=== PATIENT | male | born 1950 | race Caucasian/White ===

== ENCOUNTER 2018-01-03 16:53 | Inpatient (IN) | payer MEDICARE, OTHER ==
[2018-01-03] MEDS: FUROSEMIDE 40 MG INJ IV (17:32)
[2018-01-03] MEDS: NITROGLYCERIN (SL) 0.4 MG TAB SL (17:34)
[2018-01-03] MEDS: NITROGLYCERIN 2% 1 GM OINT PKT TD (17:34)
[2018-01-03] MEDS: ASPIRIN 81 MG TAB PO (17:34)
[2018-01-03 18:05] LABS: ADD MAN DIFF? NO
[2018-01-03 18:10] LABS: WHITE BLOOD COUNT 15.4 10^3/ul (4.8-10.8)
[2018-01-03 18:10] LABS: BASOPHIL # 0.1 10^3/ul (0.0-0.1); BASOPHILS % 0.7 % (0.0-2.0); EOSINOPHILS # 0.7 10^3/ul (0.0-0.5); EOSINOPHILS % 4.6 % (0.0-7.0); HEMATOCRIT 44.9 % (42.0-52.0); HEMOGLOBIN 14.1 g/dl (14.0-18.0); LYMPHOCYTES % 6.8 % (15.0-51.0); MEAN CORPUSCULAR HEMOGLOBIN 23.4 pg (29.0-33.0); MEAN CORPUSCULAR HGB CONC 31.4 g/dl (32.0-37.0); MEAN CORPUSCULAR VOLUME 74.5 fl (82.0-101.0); MEAN PLATELET VOLUME 10.2 fl (7.4-10.4); MONOCYTE # 0.6 10^3/ul (0.3-0.9); MONOCYTES % 3.7 % (0.0-11.0); NEUTROPHIL # 12.8 10^3/ul (1.6-7.5); RED BLOOD COUNT 6.03 10^6/ul (4.70-6.10); RED CELL DISTRIBUTION WIDTH 20.4 % (11.5-14.5)
[2018-01-03 18:38] LABS: ANION GAP 20 (8-16); BLOOD UREA NITROGEN 12 mg/dl (7-20); CALCIUM 8.3 mg/dl (8.4-10.2); CARBON DIOXIDE 19 mmol/L (21-31); CHLORIDE 112 mmol/L (97-110); CREATININE 0.72 mg/dl (0.61-1.24); GLUCOSE 89 mg/dl (70-220); POTASSIUM 3.4 mmol/L (3.5-5.1); SODIUM 148 mmol/L (135-144)
[2018-01-03 18:40] LABS: TROPONIN-I 0.013 ng/ml (0.000-0.120)
[2018-01-03 18:42] LABS: PLATELET COUNT 810 10^3/UL (140-415)
[2018-01-03] MEDS ORDERED: ACETAMINOPHEN 325 MG TAB PO (19:30)
[2018-01-03] MEDS: POTASSIUM CHLORIDE (SR) 20 MEQ TAB PO (19:30)
[2018-01-03] MEDS: ONDANSETRON 4 MG INJ IV (19:58)
[2018-01-03 23:50] LABS: CREATINE KINASE 21 IU/L (23-200)
[2018-01-04] MEDS ORDERED: ONDANSETRON 4 MG INJ IV
[2018-01-04] MEDS ORDERED: morphine 2 MG INJ IV
[2018-01-04] MEDS ORDERED: NACL 0.9% 3 ML SYG IV
[2018-01-04 00:02] LABS: CK INDEX 1.7
[2018-01-04 00:04] LABS: CK-MB 0.36 ng/ml (0.0-2.4); TROPONIN-I < 0.010 ng/ml (0.000-0.120)
[2018-01-04] MEDS: LORAZEPAM 0.5 MG TAB PO (01:01)
[2018-01-04] MEDS: FUROSEMIDE 20 MG TAB PO ×2 (06:14→19:50)
[2018-01-04] MEDS: NITROGLYCERIN (SL) 0.4 MG TAB SL (06:14)
[2018-01-04] MEDS: PANTOPRAZOLE (EC) 40 MG TAB PO (06:14)
[2018-01-04] MEDS: HYDROXYUREA 500 MG CAP PO (09:00)
[2018-01-04] MEDS: HEPARIN 5,000 UNIT/0.5 ML VIAL SC (09:00)
[2018-01-04 09:10] LABS: ADD MAN DIFF? NO
[2018-01-04 09:14] LABS: BASOPHIL # 0.1 10^3/ul (0.0-0.1); BASOPHILS % 0.9 % (0.0-2.0); EOSINOPHILS # 0.6 10^3/ul (0.0-0.5); EOSINOPHILS % 4.7 % (0.0-7.0); HEMATOCRIT 48.3 % (42.0-52.0); LYMPHOCYTES # 1.1 10^3/ul (0.8-2.9); LYMPHOCYTES % 8.3 % (15.0-51.0); MEAN CORPUSCULAR HEMOGLOBIN 23.4 pg (29.0-33.0); MEAN CORPUSCULAR HGB CONC 31.1 g/dl (32.0-37.0); MEAN CORPUSCULAR VOLUME 75.5 fl (82.0-101.0); MEAN PLATELET VOLUME 10.6 fl (7.4-10.4); MONOCYTE # 0.5 10^3/ul (0.3-0.9); MONOCYTES % 3.9 % (0.0-11.0); NEUTROPHIL # 10.2 10^3/ul (1.6-7.5); NEUTROPHILS % 80.6 % (39.0-77.0); PLATELET COUNT 778 10^3/UL (140-415); RED CELL DISTRIBUTION WIDTH 20.6 % (11.5-14.5)
[2018-01-04 09:14] LABS: WHITE BLOOD COUNT 12.7 10^3/ul (4.8-10.8)
[2018-01-04] MEDS: ASPIRIN (EC) 81 MG TAB PO (09:14)
[2018-01-04] MEDS: INDOMETHACIN 50 MG PO ×2 (09:14→13:29)
[2018-01-04 09:30] LABS: CREATINE KINASE < 20 IU/L (23-200)
[2018-01-04 09:36] LABS: ALANINE AMINOTRANSFERASE 11 IU/L (13-69); ALBUMIN 3.8 g/dl (3.3-4.9); ALBUMIN/GLOBULIN RATIO 1.46; ALKALINE PHOSPHATASE 67 IU/L (42-121); ANION GAP 15 (8-16); ASPARTATE AMINO TRANSFERASE 14 IU/L (15-46); BILIRUBIN,INDIRECT 0.6 mg/dl (0-1.1); BILIRUBIN,TOTAL 0.6 mg/dl (0.2-1.3); BLOOD UREA NITROGEN 12 mg/dl (7-20); CALCIUM 8.7 mg/dl (8.4-10.2); CARBON DIOXIDE 22 mmol/L (21-31); CHLORIDE 111 mmol/L (97-110); CHOL/HDL RATIO 3.5 RATIO; CHOLESTEROL 53 mg/dl (100-200); CREATININE 0.82 mg/dl (0.61-1.24); GLUCOSE 135 mg/dl (70-220); HDL CHOLESTEROL 15 mg/dl (31-75); LDL CHOLESTEROL,CALCULATED 21 mg/dl; MAGNESIUM 1.3 mg/dl (1.7-2.5); POTASSIUM 4.1 mmol/L (3.5-5.1); SODIUM 144 mmol/L (135-144); TOTAL PROTEIN 6.4 g/dl (6.1-8.1); TRIGLYCERIDES 86 mg/dl (0-149)
[2018-01-04 10:02] LABS: CK-MB 0.28 ng/ml (0.0-2.4); TROPONIN-I < 0.010 ng/ml (0.000-0.120)
[2018-01-04 10:11] LABS: HEMOGLOBIN A1C 5.2 % (0-5.9)
[2018-01-04 10:14] LABS: B-TYPE NATRIURETIC PEPTIDE 6900 PG/ML (0-125)
[2018-01-04] MEDS: ACETAMINOPHEN 325 MG TAB PO (13:29)
[2018-01-04] MEDS ORDERED: INDOMETHACIN 25 MG PO (15:00)
[2018-01-04] MEDS: GUAIFENESIN/CODEINE 5ML CUP PO ×2 (15:52→20:28)
[2018-01-04] MEDS: LISINOPRIL 10 MG TAB PO (19:50)
[2018-01-05] MEDS: morphine LIQ (10 MG/5 ML) CUP PO ×2 (04:08→11:42)
[2018-01-05] MEDS: FUROSEMIDE 20 MG TAB PO ×2 (06:13→18:34)
[2018-01-05] MEDS: PANTOPRAZOLE (EC) 40 MG TAB PO (06:13)
[2018-01-05] MEDS: HYDROXYUREA 500 MG CAP PO (08:48)
[2018-01-05] MEDS: ASPIRIN (EC) 81 MG TAB PO (08:49)
[2018-01-05] MEDS: LISINOPRIL 10 MG TAB PO (08:49)
[2018-01-05] MEDS: ALBUTEROL/IPRATROPIUM (NEB) 3 ML AMP HHN (09:04)
[2018-01-05] MEDS: MAGNESIUM SULFATE 2 GM/50 ML 50 ML IVPB ×3 (10:38→21:13)
[2018-01-05] MEDS: REGADENOSON 0.4 MG/5 ML SYG (14:20)
[2018-01-06] MEDS: FUROSEMIDE 20 MG TAB PO ×2 (05:43→18:04)
[2018-01-06] MEDS: PANTOPRAZOLE (EC) 40 MG TAB PO (08:21)
[2018-01-06] MEDS: LISINOPRIL 10 MG TAB PO (08:22)
[2018-01-06] MEDS: ASPIRIN (EC) 81 MG TAB PO (08:22)
[2018-01-06] MEDS: HYDROXYUREA 500 MG CAP PO (08:24)
[2018-01-06 08:53] LABS: ADD MAN DIFF? NO
[2018-01-06 08:57] LABS: WHITE BLOOD COUNT 14.6 10^3/ul (4.8-10.8)
[2018-01-06 08:57] LABS: BASOPHIL # 0.1 10^3/ul (0.0-0.1); BASOPHILS % 0.6 % (0.0-2.0); EOSINOPHILS # 0.5 10^3/ul (0.0-0.5); EOSINOPHILS % 3.4 % (0.0-7.0); HEMOGLOBIN 15.2 g/dl (14.0-18.0); LYMPHOCYTES # 1.1 10^3/ul (0.8-2.9); LYMPHOCYTES % 7.6 % (15.0-51.0); MEAN CORPUSCULAR HEMOGLOBIN 23.2 pg (29.0-33.0); MEAN CORPUSCULAR VOLUME 74.7 fl (82.0-101.0); MEAN PLATELET VOLUME 10.4 fl (7.4-10.4); MONOCYTE # 0.7 10^3/ul (0.3-0.9); MONOCYTES % 4.5 % (0.0-11.0); NEUTROPHIL # 12.1 10^3/ul (1.6-7.5); NEUTROPHILS % 82.7 % (39.0-77.0); PLATELET COUNT 750 10^3/UL (140-415); RED BLOOD COUNT 6.56 10^6/ul (4.70-6.10); RED CELL DISTRIBUTION WIDTH 20.8 % (11.5-14.5)
[2018-01-06 09:23] LABS: ALANINE AMINOTRANSFERASE 18 IU/L (13-69); ALBUMIN 3.7 g/dl (3.3-4.9); ALBUMIN/GLOBULIN RATIO 1.32; ALKALINE PHOSPHATASE 75 IU/L (42-121); ANION GAP 12 (8-16); ASPARTATE AMINO TRANSFERASE 27 IU/L (15-46); BILIRUBIN,INDIRECT 0.9 mg/dl (0-1.1); BILIRUBIN,TOTAL 0.9 mg/dl (0.2-1.3); BLOOD UREA NITROGEN 8 mg/dl (7-20); CARBON DIOXIDE 28 mmol/L (21-31); CHLORIDE 104 mmol/L (97-110); CREATININE 0.74 mg/dl (0.61-1.24); GLUCOSE 91 mg/dl (70-220); MAGNESIUM 1.7 mg/dl (1.7-2.5); POTASSIUM 3.1 mmol/L (3.5-5.1); SODIUM 141 mmol/L (135-144); TOTAL PROTEIN 6.5 g/dl (6.1-8.1)
[2018-01-06] MEDS: POTASSIUM CHLORIDE (SR) 20 MEQ TAB PO (18:04)
[2018-01-06] MEDS: ATORVASTATIN 20 MG TAB PO (20:20)
[2018-01-07] MEDS: PANTOPRAZOLE (EC) 40 MG TAB PO (06:34)
[2018-01-07] MEDS: FUROSEMIDE 20 MG TAB PO ×2 (06:34→17:24)
[2018-01-07 08:54] LABS: ADD MAN DIFF? NO
[2018-01-07] MEDS: ASPIRIN (EC) 81 MG TAB PO (08:55)
[2018-01-07] MEDS: MULTIVITAMINS THERAPEUTIC TAB PO (08:55)
[2018-01-07] MEDS: HYDROXYUREA 500 MG CAP PO (08:55)
[2018-01-07 08:59] LABS: BASOPHIL # 0.1 10^3/ul (0.0-0.1); BASOPHILS % 0.8 % (0.0-2.0); EOSINOPHILS # 0.7 10^3/ul (0.0-0.5); EOSINOPHILS % 5.3 % (0.0-7.0); HEMATOCRIT 49.2 % (42.0-52.0); HEMOGLOBIN 15.4 g/dl (14.0-18.0); LYMPHOCYTES # 1.5 10^3/ul (0.8-2.9); LYMPHOCYTES % 11.3 % (15.0-51.0); MEAN CORPUSCULAR HEMOGLOBIN 23.2 pg (29.0-33.0); MEAN CORPUSCULAR HGB CONC 31.3 g/dl (32.0-37.0); MEAN PLATELET VOLUME 10.6 fl (7.4-10.4); MONOCYTE # 0.5 10^3/ul (0.3-0.9); MONOCYTES % 3.7 % (0.0-11.0); NEUTROPHIL # 10.4 10^3/ul (1.6-7.5); NEUTROPHILS % 77.8 % (39.0-77.0); PLATELET COUNT 750 10^3/UL (140-415); RED BLOOD COUNT 6.65 10^6/ul (4.70-6.10); RED CELL DISTRIBUTION WIDTH 20.6 % (11.5-14.5)
[2018-01-07 08:59] LABS: WHITE BLOOD COUNT 13.4 10^3/ul (4.8-10.8)
[2018-01-07 09:17] LABS: ANION GAP 19 (8-16); BLOOD UREA NITROGEN 11 mg/dl (7-20); CALCIUM 8.1 mg/dl (8.4-10.2); CARBON DIOXIDE 24 mmol/L (21-31); CHLORIDE 102 mmol/L (97-110); CREATININE 0.68 mg/dl (0.61-1.24); GLUCOSE 82 mg/dl (70-220); POTASSIUM 4.8 mmol/L (3.5-5.1); SODIUM 140 mmol/L (135-144)
[2018-01-07 09:18] LABS: MAGNESIUM 1.5 mg/dl (1.7-2.5)
[2018-01-07 10:48] LABS: URIC ACID 12.5 mg/dl (3.1-7.9)
[2018-01-07] MEDS: MAG SULFATE 2GM IN 50 ML IVPB (15:28)
[2018-01-07] MEDS ORDERED: MAGNESIUM SULFATE 3 GM in DEXTROSE 5% 100 ML IVPB (16:00)
[2018-01-07] MEDS: MAGNESIUM SULFATE 1 GM/D5W 100 ML IVPB (17:20)
[2018-01-07] MEDS: SACUBITRIL/VALSARTAN (24mg-26mg) TABLET PO (22:03)
[2018-01-07] MEDS: ATORVASTATIN 20 MG TAB PO (22:04)
[2018-01-08] MEDS: LORAZEPAM 2 MG INJ IV ×2 (05:07→11:43)
[2018-01-08] MEDS: HYDROXYUREA 500 MG CAP PO (09:00)
[2018-01-08] MEDS: ASPIRIN (EC) 81 MG TAB PO (10:16)
[2018-01-08] MEDS: MULTIVITAMINS THERAPEUTIC TAB PO (10:18)
[2018-01-08] MEDS: FUROSEMIDE 20 MG TAB PO ×2 (10:18→17:50)
[2018-01-08] MEDS: PANTOPRAZOLE (EC) 40 MG TAB PO (10:18)
[2018-01-08] MEDS: SACUBITRIL/VALSARTAN (24mg-26mg) TABLET PO ×2 (13:14→20:54)
[2018-01-08 15:22] LABS: ADD MAN DIFF? NO
[2018-01-08 15:23] LABS: WHITE BLOOD COUNT 16.9 10^3/ul (4.8-10.8)
[2018-01-08 15:23] LABS: BASOPHIL # 0.1 10^3/ul (0.0-0.1); BASOPHILS % 0.8 % (0.0-2.0); EOSINOPHILS # 0.8 10^3/ul (0.0-0.5); EOSINOPHILS % 4.9 % (0.0-7.0); HEMATOCRIT 53.6 % (42.0-52.0); HEMOGLOBIN 16.8 g/dl (14.0-18.0); LYMPHOCYTES # 1.5 10^3/ul (0.8-2.9); LYMPHOCYTES % 9.1 % (15.0-51.0); MEAN CORPUSCULAR HEMOGLOBIN 23.3 pg (29.0-33.0); MEAN CORPUSCULAR HGB CONC 31.3 g/dl (32.0-37.0); MEAN CORPUSCULAR VOLUME 74.3 fl (82.0-101.0); MEAN PLATELET VOLUME 10.2 fl (7.4-10.4); MONOCYTE # 0.5 10^3/ul (0.3-0.9); MONOCYTES % 3.1 % (0.0-11.0); NEUTROPHIL # 13.7 10^3/ul (1.6-7.5); NEUTROPHILS % 81.1 % (39.0-77.0); PLATELET COUNT 857 10^3/UL (140-415); RED BLOOD COUNT 7.21 10^6/ul (4.70-6.10); RED CELL DISTRIBUTION WIDTH 20.9 % (11.5-14.5)
[2018-01-08 15:52] LABS: ANION GAP 16 (8-16); BLOOD UREA NITROGEN 14 mg/dl (7-20); CALCIUM 8.3 mg/dl (8.4-10.2); CARBON DIOXIDE 25 mmol/L (21-31); CHLORIDE 104 mmol/L (97-110); CREATININE 0.75 mg/dl (0.61-1.24); GLUCOSE 107 mg/dl (70-220); POTASSIUM 3.4 mmol/L (3.5-5.1); SODIUM 142 mmol/L (135-144)
[2018-01-08 16:00] LABS: MAGNESIUM 1.7 mg/dl (1.7-2.5)
[2018-01-08] MEDS: POTASSIUM CHLORIDE (SR) 20 MEQ TAB PO (16:58)
[2018-01-08] MEDS ORDERED: GUAIFENESIN 20 MG/ML 5ML CUP PO (17:00)
[2018-01-08] MEDS ORDERED: MAGNESIUM SULFATE 3 GM in DEXTROSE 5% 100 ML IVPB (17:30)
[2018-01-08] MEDS: COLCHICINE 0.6 MG TAB PO (17:51)
[2018-01-08] MEDS: MAGNESIUM SULFATE 1 GM/D5W 100 ML IVPB ×3 (19:48→21:06)
[2018-01-08] MEDS: ATORVASTATIN 20 MG TAB PO (20:53)
[2018-01-09] MEDS: LORAZEPAM 0.5 MG TAB PO (03:50)
[2018-01-09] MEDS: FUROSEMIDE 20 MG TAB PO ×2 (05:56→17:45)
[2018-01-09] MEDS: ASPIRIN (EC) 81 MG TAB PO (08:46)
[2018-01-09] MEDS: MULTIVITAMINS THERAPEUTIC TAB PO (08:46)
[2018-01-09] MEDS: PANTOPRAZOLE (EC) 40 MG TAB PO (08:46)
[2018-01-09] MEDS: SACUBITRIL/VALSARTAN (24mg-26mg) TABLET PO ×2 (12:12→20:27)
[2018-01-09] MEDS ORDERED: LORAZEPAM 0.5 MG TAB PO (13:30)
[2018-01-09 14:26] LABS: ADD MAN DIFF? NO
[2018-01-09 14:28] LABS: BASOPHIL # 0.2 10^3/ul (0.0-0.1); BASOPHILS % 0.9 % (0.0-2.0); HEMATOCRIT 54.7 % (42.0-52.0); HEMOGLOBIN 16.8 g/dl (14.0-18.0); LYMPHOCYTES % 10.3 % (15.0-51.0); MEAN CORPUSCULAR HEMOGLOBIN 23.1 pg (29.0-33.0); MEAN CORPUSCULAR HGB CONC 30.7 g/dl (32.0-37.0); MEAN CORPUSCULAR VOLUME 75.2 fl (82.0-101.0); MEAN PLATELET VOLUME 9.8 fl (7.4-10.4); MONOCYTE # 0.6 10^3/ul (0.3-0.9); MONOCYTES % 3.2 % (0.0-11.0); NEUTROPHILS % 79.4 % (39.0-77.0); RED BLOOD COUNT 7.27 10^6/ul (4.70-6.10); RED CELL DISTRIBUTION WIDTH 20.8 % (11.5-14.5)
[2018-01-09 14:28] LABS: WHITE BLOOD COUNT 18.9 10^3/ul (4.8-10.8)
[2018-01-09 14:31] LABS: PLATELET COUNT 897 10^3/UL (140-415)
[2018-01-09 14:46] LABS: MAGNESIUM 1.8 mg/dl (1.7-2.5); URIC ACID 10.9 mg/dl (3.1-7.9)
[2018-01-09 14:46] LABS: PHOSPHORUS 4.6 mg/dl (2.5-4.9)
[2018-01-09 14:47] LABS: ANION GAP 16 (8-16); BLOOD UREA NITROGEN 14 mg/dl (7-20); CALCIUM 8.4 mg/dl (8.4-10.2); CARBON DIOXIDE 25 mmol/L (21-31); CHLORIDE 105 mmol/L (97-110); CREATININE 0.78 mg/dl (0.61-1.24); GLUCOSE 102 mg/dl (70-220); POTASSIUM 3.3 mmol/L (3.5-5.1); SODIUM 143 mmol/L (135-144)
[2018-01-09] MEDS ORDERED: MAGNESIUM SULFATE 3 GM in DEXTROSE 5% 100 ML IVPB (15:30)
[2018-01-09] MEDS: MAG SULFATE 2GM IN 50 ML IVPB (16:06)
[2018-01-09] MEDS: POTASSIUM CHLORIDE (SR) 20 MEQ TAB PO (16:06)
[2018-01-09] MEDS: MAGNESIUM SULFATE 1 GM/D5W 100 ML IVPB (18:40)
[2018-01-09] MEDS: ATORVASTATIN 20 MG TAB PO (20:26)
[2018-01-09] MEDS: GUAIFENESIN/CODEINE 5ML CUP PO (20:31)
[2018-01-09] MEDS ORDERED: POTASSIUM CHLORIDE (SR) 20 MEQ TAB PO (21:00)
[2018-01-10] MEDS: FUROSEMIDE 20 MG TAB PO (06:00)
[2018-01-10] MEDS: PANTOPRAZOLE (EC) 40 MG TAB PO (07:43)
[2018-01-10] MEDS: SACUBITRIL/VALSARTAN (24mg-26mg) TABLET PO (09:12)
[2018-01-10] MEDS: ASPIRIN (EC) 81 MG TAB PO (09:13)
[2018-01-10] MEDS: MULTIVITAMINS THERAPEUTIC TAB PO (09:13)
[2018-01-10 09:44] LABS: ADD MAN DIFF? NO
[2018-01-10 09:46] LABS: WHITE BLOOD COUNT 20.1 10^3/ul (4.8-10.8)
[2018-01-10 09:46] LABS: BASOPHIL # 0.2 10^3/ul (0.0-0.1); EOSINOPHILS # 1.1 10^3/ul (0.0-0.5); EOSINOPHILS % 5.5 % (0.0-7.0); HEMATOCRIT 55.1 % (42.0-52.0); HEMOGLOBIN 17.1 g/dl (14.0-18.0); LYMPHOCYTES # 1.9 10^3/ul (0.8-2.9); LYMPHOCYTES % 9.2 % (15.0-51.0); MEAN CORPUSCULAR HEMOGLOBIN 23.2 pg (29.0-33.0); MEAN CORPUSCULAR VOLUME 74.7 fl (82.0-101.0); MEAN PLATELET VOLUME 9.8 fl (7.4-10.4); MONOCYTE # 0.6 10^3/ul (0.3-0.9); MONOCYTES % 2.9 % (0.0-11.0); NEUTROPHIL # 16.1 10^3/ul (1.6-7.5); RED BLOOD COUNT 7.38 10^6/ul (4.70-6.10); RED CELL DISTRIBUTION WIDTH 21.2 % (11.5-14.5)
[2018-01-10 09:52] LABS: PLATELET COUNT 937 10^3/UL (140-415)
[2018-01-10 10:07] LABS: ANION GAP 14 (8-16); BLOOD UREA NITROGEN 16 mg/dl (7-20); CALCIUM 8.6 mg/dl (8.4-10.2); CARBON DIOXIDE 23 mmol/L (21-31); CHLORIDE 110 mmol/L (97-110); GLUCOSE 93 mg/dl (70-220); POTASSIUM 3.6 mmol/L (3.5-5.1); SODIUM 143 mmol/L (135-144)
[2018-01-10 10:09] LABS: MAGNESIUM 2.2 mg/dl (1.7-2.5)
== END 2018-01-10 16:36 | disposition home or self-care (01) | DRG 293 ==
LOC: MS4 01-05 15:10 → E/R 16:53 → MS3 19:13
PROC: 4A02XM4 Measurement of Cardiac Total Activity, External Approach (ICD-10-PCS; principal; 2018-01-05)
PROC: 3E033HZ Introduction of Radioactive Substance into Peripheral Vein, Percutaneous Approach (ICD-10-PCS; 2018-01-05)
PROC: C22G1ZZ Tomographic (Tomo) Nuclear Medicine Imaging of Myocardium using Technetium 99m (Tc-99m) (ICD-10-PCS; 2018-01-05)
DX: I11.0 Hypertensive heart disease with heart failure (principal); I50.23 Acute on chronic systolic (congestive) heart failure; M10.9 Gout, unspecified; E78.5 Hyperlipidemia, unspecified; E83.42 Hypomagnesemia; I42.9 Cardiomyopathy, unspecified; D47.3 Essential (hemorrhagic) thrombocythemia; F41.9 Anxiety disorder, unspecified; D75.1 Secondary polycythemia; F10.20 Alcohol dependence, uncomplicated
CPT/HCPCS: 71045; 78452; 80048; 80053; 80061; 82550; 82553; 83036; 83735; 83880; 84100; 84443; 84484; 84560; 85025; 93005; 93017; 93306; 94664; 96374; 96375; 99217; 99285-25; G0378

== ENCOUNTER 2018-02-15 11:30 | Inpatient (IN) | payer MEDICARE, OTHER ==
[~2018-02-15 11:30] MED LIST: EPHEDrine SULFATE 50 MG/5 ML SYG; ETOMIDATE 20 MG INJ; PROPOFOL 1000 MG INJ; SUCCINYLCHOLINE CHLORIDE 100 MG/5 ML SYG IV
[2018-02-15 12:33] LABS: ABNORMAL IP MESSAGE 1; HEMATOCRIT 50.4 % (42.0-52.0); HEMOGLOBIN 15.9 g/dl (14.0-18.0); MEAN CORPUSCULAR HEMOGLOBIN 22.8 pg (29.0-33.0); MEAN CORPUSCULAR HGB CONC 31.5 g/dl (32.0-37.0); MEAN CORPUSCULAR VOLUME 72.4 fl (82.0-101.0); MEAN PLATELET VOLUME 9.5 fl (7.4-10.4); PLATELET COUNT 1420 10^3/UL (140-415); POSITIVE DIFF @See below; RED BLOOD COUNT 6.96 10^6/ul (4.70-6.10); RED CELL DISTRIBUTION WIDTH 22.6 % (11.5-14.5)
[2018-02-15] MEDS: PROPOFOL 100 ML IV ×2 (12:34→21:24)
[2018-02-15] MEDS: SOD CHLORIDE 0.9% 1,000 ML IV (12:35)
[2018-02-15] MEDS: CEFTRIAXONE 1 GM/50 ML (PMX) 50 ML IVPB (12:35)
[2018-02-15] MEDS: LORAZEPAM 2 MG INJ IV (12:35)
[2018-02-15 12:39] LABS: ADD MAN DIFF? YES
[2018-02-15 12:51] LABS: ALANINE AMINOTRANSFERASE 15 IU/L (13-69); ALBUMIN 4.7 g/dl (3.3-4.9); ALBUMIN/GLOBULIN RATIO 1.42; ALKALINE PHOSPHATASE 139 IU/L (42-121); ANION GAP 23 (8-16); ASPARTATE AMINO TRANSFERASE 33 IU/L (15-46); BILIRUBIN,INDIRECT 0.8 mg/dl (0-1.1); BILIRUBIN,TOTAL 0.8 mg/dl (0.2-1.3); BLOOD UREA NITROGEN 11 mg/dl (7-20); CALCIUM 8.7 mg/dl (8.4-10.2); CARBON DIOXIDE 16 mmol/L (21-31); CHLORIDE 109 mmol/L (97-110); CREATININE 0.77 mg/dl (0.61-1.24); GLUCOSE 156 mg/dl (70-220); LIPASE 95 U/L (23-300); POTASSIUM 3.1 mmol/L (3.5-5.1); SODIUM 145 mmol/L (135-144)
[2018-02-15 12:53] LABS: ETHANOL < 10.0 mg/dl
[2018-02-15 12:56] LABS: ADD UMIC YES; UR ASCORBIC ACID NEGATIVE (NEGATIVE); UR BILIRUBIN (Dip) NEGATIVE (NEGATIVE); UR BLOOD (Dip) 1+ mg/dL (NEGATIVE); UR CLARITY CLEAR (CLEAR); UR COLOR YELLOW (YELLOW); UR GLUCOSE (Dip) NEGATIVE (NEGATIVE); UR KETONES (Dip) TRACE mg/dL (NEGATIVE); UR LEUKOCYTE ESTERASE (Dip) NEGATIVE Leu/ul (NEGATIVE); UR NITRITE (Dip) NEGATIVE (NEGATIVE); UR RBC 1 /HPF (0-5); UR SPECIFIC GRAVITY (Dip) 1.012 (1.003-1.030); UR TOTAL PROTEIN (Dip) 1+ mg/dl (NEGATIVE); UR UROBILINOGEN (Dip) NEGATIVE (NEGATIVE); UR WBC 1 /HPF (0-5)
[2018-02-15 12:59] LABS: AADO2 Arterial 212.5 mmHg (7.0-24.0); Arterial Base Excess -3.5 mmol/L (-3.0-3); Arterial Blood Gas Oxygen Sat 99.6 mmHG (95.0-98.0); Arterial COHb 0.2 % (0.0-3.0); Arterial Fraction of Oxyhgb 98.9 % (93.0-99.0); Arterial MetHb 0.5 % (0.0-1.5); Arterial Total Hemglobin 16.2 g/dl (12.0-18.0); Arterial pCO2 32.4 mmhg (35-45); MODE VENT - AC; Site Right Brachial
[2018-02-15 13:03] LABS: TROPONIN-I < 0.010 ng/ml (0.000-0.120)
[2018-02-15 13:04] LABS: INR 1.18; PROTIME 15.2 Sec (11.9-14.9); PT RATIO 1.2
[2018-02-15 13:05] LABS: PARTIAL THROMBOPLASTIN TIME 30.1 Sec (25.0-35.0)
[2018-02-15 13:07] LABS: AMPHETAMINE/METHAMPHETAMINE Negative (NEGATIVE); BARBITURATES Negative (NEGATIVE); BENZODIAZEPINES Negative (NEGATIVE); CANNABINOIDS Negative (NEGATIVE); COCAINE Negative (NEGATIVE); OPIATES Negative (NEGATIVE)
[2018-02-15 13:10] LABS: ANISOCYTOSIS 2+ (0-0); BAND NEUTROPHILS #M 3.9 10^3/ul (0.0-0.6); BAND NEUTROPHILS % (M) 13 % (0-4); EOSINOPHILS % (M) 2 % (0-7); LYMPHOCYTES #M 0.6 10^3/ul (0.8-2.9); LYMPHOCYTES % (M) 2 % (15-51); MICROCYTOSIS 2+ (0-0); MONOCYTE #M 2.4 10^3/ul (0.3-0.9); MONOCYTES % (M) 8 % (0-11); PLATELET ESTIMATE INCREASED; PLATELET MORPHOLOGY COMMENT @See below; POIKILOCYTOSIS 3+ (0-0); POLYCHROMASIA 2+ (0-0); REACTIVE LYMPHOCYTES #M 0.3 10^3/ul (0.0-0.0); REACTIVE LYMPHOCYTES% (M) 1 % (0-0); SEG NEUT #M 23.4 10^3/ul (1.6-7.5); SEGMENTED NEUTROPHILS (M) % 74 % (39-77); SMUDGE%M 1 % (0-0)
[2018-02-15] MEDS: AZITHROMYCIN 500MG/NS (PMX) 250 ML IVPB (13:13)
[2018-02-15] MEDS: MIDAZOLAM (DRIP) 50 mg/50 mL 50 ML IV (14:06)
[2018-02-15] MEDS: LEVETIRACETAM 1000 MG (PMX) 100 ML IVPB (14:06)
[2018-02-15] MEDS: ACETAMINOPHEN 650 MG SUPP PR (15:31)
[2018-02-15] MEDS: GELATIN SIZE 100 SPONGE (16:09)
[2018-02-15] MEDS: LIDOCAINE 1%/EPI 30 ML INJ (16:09)
[2018-02-15] MEDS: POLYMYXIN/BACITRACIN 1L IRRIG (16:10)
[2018-02-15] MEDS: THROMBIN 5000 UNIT VIAL (16:10)
[2018-02-15] MEDS ORDERED: FENTAnyl 50 MCG/ML VIAL ×2 (16:15→17:31)
[2018-02-15] MEDS ORDERED: PROPOFOL 20 ML (16:15)
[2018-02-15 16:19] LABS: LACTIC ACID 3.4 mmol/L (0.5-2.0)
[2018-02-15] MEDS: DESMOPRESSIN 20 MCG in NS 50 ML IV (17:00)
[2018-02-15] MEDS ORDERED: PHENYLephrine (100 MCG/ML) 5ML SYG (17:01)
[2018-02-15] MEDS ORDERED: MANNITOL 20% 250 ML IV (17:07)
[2018-02-15] MEDS ORDERED: POLYMYXIN/BACITRACIN 1L IRRIG (17:29)
[2018-02-15] MEDS ORDERED: THROMBIN 5000 UNIT VIAL (17:29)
[2018-02-15] MEDS ORDERED: DEXAMETHASONE 4 MG/ML 1 ML INJ (17:37)
[2018-02-15] MEDS ORDERED: LIDOCAINE 2% (SDV) 5 ML INJ (17:45)
[2018-02-15] MEDS ORDERED: ROCURONIUM 50 MG INJ (17:45)
[2018-02-15] MEDS ORDERED: ALBUMIN HUMAN 25% 200 ML (17:46)
[2018-02-15] MEDS ORDERED: POTASSIUM CHLORIDE 100 ML (17:50)
[2018-02-15] MEDS ORDERED: NEOMYC/POLYMYX/BACIT 30 GM OINT (18:49)
[2018-02-15] MEDS ORDERED: ONDANSETRON 4 MG INJ IV (20:30)
[2018-02-15] MEDS ORDERED: CEPASTAT LOZENGE MT (20:30)
[2018-02-15] MEDS: niCARdipine-NS 0.1MG/ML DRIP 200 ML IV (21:26)
[2018-02-15 22:04] LABS: ANION GAP 13 (8-16); BLOOD UREA NITROGEN 9 mg/dl (7-20); CALCIUM 7.9 mg/dl (8.4-10.2); CARBON DIOXIDE 20 mmol/L (21-31); CHLORIDE 113 mmol/L (97-110); CREATININE 0.65 mg/dl (0.61-1.24); GLUCOSE 160 mg/dl (70-220); PHOSPHORUS 4.1 mg/dl (2.5-4.9); POTASSIUM 4.3 mmol/L (3.5-5.1); SODIUM 142 mmol/L (135-144)
[2018-02-15 22:08] LABS: MAGNESIUM 0.8 mg/dl (1.7-2.5)
[2018-02-15] MEDS: CEFAZOLIN 2 GM/50 ML (PMX) 50 ML IVPB (22:34)
[2018-02-15] MEDS: MAGNESIUM SULFATE 6 GM in DEXTROSE 5% 100 ML IVPB (23:41)
[2018-02-16] MEDS: DEXTROSE 5%-0.45% NACL 1,000 ML IV ×2 (01:52→22:19)
[2018-02-16] MEDS: VANCOMYCIN 1.5 GM in SOD CHLORIDE 0.9% 250 ML IVPB (04:05)
[2018-02-16 05:45] LABS: ABNORMAL IP MESSAGE 1; HEMATOCRIT 38.8 % (42.0-52.0); HEMOGLOBIN 12.1 g/dl (14.0-18.0); MEAN CORPUSCULAR HEMOGLOBIN 22.9 pg (29.0-33.0); MEAN CORPUSCULAR HGB CONC 31.2 g/dl (32.0-37.0); MEAN CORPUSCULAR VOLUME 73.3 fl (82.0-101.0); MEAN PLATELET VOLUME 9.8 fl (7.4-10.4); PLATELET COUNT 807 10^3/UL (140-415); POSITIVE DIFF @See below; RED BLOOD COUNT 5.29 10^6/ul (4.70-6.10); RED CELL DISTRIBUTION WIDTH 22.2 % (11.5-14.5)
[2018-02-16 05:45] LABS: WHITE BLOOD COUNT 27.8 10^3/ul (4.8-10.8)
[2018-02-16] MEDS ORDERED: VANCOMYCIN IV PER PHARMACY XX (06:00)
[2018-02-16 06:24] LABS: ADD MAN DIFF? YES
[2018-02-16 06:34] LABS: ANION GAP 17 (8-16); BLOOD UREA NITROGEN 11 mg/dl (7-20); CALCIUM 7.8 mg/dl (8.4-10.2); CARBON DIOXIDE 21 mmol/L (21-31); CHLORIDE 111 mmol/L (97-110); GLUCOSE 172 mg/dl (70-220); POTASSIUM 3.9 mmol/L (3.5-5.1); SODIUM 145 mmol/L (135-144)
[2018-02-16] MEDS: PANTOPRAZOLE 40 MG INJ IV (06:53)
[2018-02-16] MEDS: CEFAZOLIN 2 GM/50 ML (PMX) 50 ML IVPB ×2 (06:54→13:49)
[2018-02-16 07:45] LABS: ANISOCYTOSIS 2+ (0-0); BAND NEUTROPHILS #M 7.2 10^3/ul (0.0-0.6); BAND NEUTROPHILS % (M) 26 % (0-4); LYMPHOCYTES #M 0.2 10^3/ul (0.8-2.9); LYMPHOCYTES % (M) 1 % (15-51); MICROCYTOSIS 2+ (0-0); MONOCYTE #M 0.2 10^3/ul (0.3-0.9); MONOCYTES % (M) 1 % (0-11); PLATELET ESTIMATE INCREASED; POIKILOCYTOSIS 2+ (0-0); POLYCHROMASIA 3+ (0-0); REACTIVE LYMPHOCYTES #M 0.2 10^3/ul (0.0-0.0); REACTIVE LYMPHOCYTES% (M) 1 % (0-0); SEG NEUT #M 21.7 10^3/ul (1.6-7.5); SEGMENTED NEUTROPHILS (M) % 71 % (39-77); SMUDGE%M 1 % (0-0); TOXIC GRANULATION 1+ (0-0)
[2018-02-16 07:55] LABS: PHOSPHORUS 3.2 mg/dl (2.5-4.9)
[2018-02-16 07:55] LABS: MAGNESIUM 2.3 mg/dl (1.7-2.5)
[2018-02-16] MEDS: PROPOFOL 100 ML IV ×2 (07:55→11:07)
[2018-02-16 10:40] LABS: LACTIC ACID 1.8 mmol/L (0.5-2.0)
[2018-02-16] MEDS: LEVETIRACETAM IV 750 MG in DEXTROSE 5% 100 ML IVPB ×2 (11:48→21:38)
[2018-02-16] MEDS: VANCOMYCIN 1.25 GM in SOD CHLORIDE 0.9% 250 ML IVPB (15:13)
[2018-02-17] MEDS: VANCOMYCIN 1.25 GM in SOD CHLORIDE 0.9% 250 ML IVPB ×2 (03:10→15:51)
[2018-02-17] MEDS: ACETAMINOPHEN 1000MG/100ML IV 100 ML IVPB (04:57)
[2018-02-17 05:28] LABS: ADD MAN DIFF? NO
[2018-02-17 05:37] LABS: WHITE BLOOD COUNT 18.5 10^3/ul (4.8-10.8)
[2018-02-17 05:37] LABS: BASOPHIL # 0.1 10^3/ul (0.0-0.1); BASOPHILS % 0.4 % (0.0-2.0); HEMATOCRIT 35.3 % (42.0-52.0); HEMOGLOBIN 10.9 g/dl (14.0-18.0); LYMPHOCYTES # 0.6 10^3/ul (0.8-2.9); LYMPHOCYTES % 3.4 % (15.0-51.0); MEAN CORPUSCULAR HGB CONC 30.9 g/dl (32.0-37.0); MEAN CORPUSCULAR VOLUME 74.5 fl (82.0-101.0); MEAN PLATELET VOLUME 9.8 fl (7.4-10.4); MONOCYTE # 0.4 10^3/ul (0.3-0.9); MONOCYTES % 2.3 % (0.0-11.0); NEUTROPHIL # 17.2 10^3/ul (1.6-7.5); NEUTROPHILS % 93.2 % (39.0-77.0); PLATELET COUNT 700 10^3/UL (140-415); RED BLOOD COUNT 4.74 10^6/ul (4.70-6.10); RED CELL DISTRIBUTION WIDTH 21.3 % (11.5-14.5)
[2018-02-17 05:53] LABS: LACTIC ACID 1.1 mmol/L (0.5-2.0)
[2018-02-17 06:11] LABS: ANION GAP 9 (8-16); BLOOD UREA NITROGEN 16 mg/dl (7-20); CALCIUM 7.5 mg/dl (8.4-10.2); CARBON DIOXIDE 23 mmol/L (21-31); CHLORIDE 115 mmol/L (97-110); GLUCOSE 115 mg/dl (70-220); MAGNESIUM 2.1 mg/dl (1.7-2.5); PHOSPHORUS 2.1 mg/dl (2.5-4.9); POTASSIUM 3.5 mmol/L (3.5-5.1); SODIUM 143 mmol/L (135-144)
[2018-02-17] MEDS: PANTOPRAZOLE 40 MG INJ IV (06:52)
[2018-02-17] MEDS: PROPOFOL 100 ML IV ×2 (08:01→12:19)
[2018-02-17 08:27] LABS: AADO2 Arterial 144.9 mmHg (7.0-24.0); Arterial Base Excess -2.4 mmol/L (-3.0-3); Arterial COHb 0.5 % (0.0-3.0); Arterial Fraction of Oxyhgb 97.2 % (93.0-99.0); Arterial HCO3 20.1 mmol/L (22.0-26.0); Arterial MetHb 0.3 % (0.0-1.5); Arterial Total Hemglobin 11.7 g/dl (12.0-18.0); Arterial pCO2 28.1 mmhg (35-45); MODE VENT - AC
[2018-02-17 08:43] LABS: Site A-Line
[2018-02-17] MEDS: LEVETIRACETAM IV 750 MG in DEXTROSE 5% 100 ML IVPB ×2 (08:46→21:40)
[2018-02-17] MEDS: POTASSIUM PHOSPHATE 30 MM in SOD CHLORIDE 0.9% 250 ML IVPB (11:22)
[2018-02-17] MEDS: DEXTROSE 5%-0.45% NACL 1,000 ML IV ×2 (11:25→23:20)
[2018-02-17 15:09] LABS: VANCOMYCIN,TROUGH 16.7 ug/ml (10.0-20.0)
[2018-02-17] MEDS: FAMOTIDINE 20 MG TAB NGT (21:07)
[2018-02-17] MEDS: ACETAMINOPHEN 650 MG SUPP PR (23:40)
[2018-02-18] MEDS: VANCOMYCIN 1 GM 250 ML IVPB (03:40)
[2018-02-18] MEDS: DEXTROSE 5%-0.45% NACL 1,000 ML IV (03:47)
[2018-02-18 04:56] LABS: ADD MAN DIFF? NO; BASOPHIL # 0.1 10^3/ul (0.0-0.1); BASOPHILS % 0.5 % (0.0-2.0); EOSINOPHILS # 0.1 10^3/ul (0.0-0.5); EOSINOPHILS % 0.3 % (0.0-7.0); HEMATOCRIT 35.7 % (42.0-52.0); HEMOGLOBIN 10.8 g/dl (14.0-18.0); LYMPHOCYTES # 0.7 10^3/ul (0.8-2.9); LYMPHOCYTES % 4.6 % (15.0-51.0); MEAN CORPUSCULAR HEMOGLOBIN 23.1 pg (29.0-33.0); MEAN CORPUSCULAR HGB CONC 30.3 g/dl (32.0-37.0); MEAN CORPUSCULAR VOLUME 76.4 fl (82.0-101.0); MEAN PLATELET VOLUME 9.6 fl (7.4-10.4); MONOCYTE # 0.3 10^3/ul (0.3-0.9); MONOCYTES % 2.1 % (0.0-11.0); NEUTROPHIL # 14.4 10^3/ul (1.6-7.5); NEUTROPHILS % 89.9 % (39.0-77.0); PLATELET COUNT 623 10^3/UL (140-415); RED BLOOD COUNT 4.67 10^6/ul (4.70-6.10); RED CELL DISTRIBUTION WIDTH 21.4 % (11.5-14.5)
[2018-02-18 05:27] LABS: ANION GAP 12 (8-16)
[2018-02-18 05:31] LABS: BLOOD UREA NITROGEN 11 mg/dl (7-20); CALCIUM 7.3 mg/dl (8.4-10.2); CARBON DIOXIDE 22 mmol/L (21-31); CHLORIDE 114 mmol/L (97-110); CREATININE 0.76 mg/dl (0.61-1.24); GLUCOSE 113 mg/dl (70-220); POTASSIUM 3.2 mmol/L (3.5-5.1); SODIUM 145 mmol/L (135-144)
[2018-02-18] MEDS: POTASSIUM CHLORIDE 100 ML IVPB ×3 (06:31→11:37)
[2018-02-18] MEDS: PROPOFOL 100 ML IV ×2 (07:59→20:30)
[2018-02-18] MEDS: FAMOTIDINE 20 MG TAB NGT ×2 (08:13→21:42)
[2018-02-18] MEDS: DEXTROSE 5% 1,000 ML IV (08:14)
[2018-02-18] MEDS: LEVETIRACETAM IV 750 MG in DEXTROSE 5% 100 ML IVPB (09:28)
[2018-02-18 11:03] LABS: PHOSPHORUS 3.3 mg/dl (2.5-4.9)
[2018-02-18] MEDS ORDERED: POTASSIUM CHLORIDE (SR) 20 MEQ TAB PO (16:17)
[2018-02-18] MEDS ORDERED: NORepinephrine 8MG/250 ML (PMX 250 ML IV (21:00)
[2018-02-18] MEDS: ACETAMINOPHEN 650 MG SUPP PR (21:42)
[2018-02-18] MEDS: LEVETIRACETAM 500 MG TAB NGT (21:42)
[2018-02-18] MEDS: BALSAM PERU/CASTOR OIL 60 GM TUBE TOP (21:42)
[2018-02-18] MEDS: PIPER-TAZO 3.375 GM IV (PMX) 100 ML IVPB ×2 (21:42→23:38)
[2018-02-19] MEDS: HYDROmorphONE 0.5 MG/0.5 ML SYG IV ×3 (00:14→21:21)
[2018-02-19 05:04] LABS: ADD MAN DIFF? NO
[2018-02-19 05:10] LABS: BASOPHIL # 0.2 10^3/ul (0.0-0.1); BASOPHILS % 0.9 % (0.0-2.0); EOSINOPHILS # 0.4 10^3/ul (0.0-0.5); EOSINOPHILS % 1.9 % (0.0-7.0); HEMATOCRIT 38.1 % (42.0-52.0); HEMOGLOBIN 11.6 g/dl (14.0-18.0); LYMPHOCYTES # 0.9 10^3/ul (0.8-2.9); MEAN CORPUSCULAR HEMOGLOBIN 23.5 pg (29.0-33.0); MEAN CORPUSCULAR HGB CONC 30.4 g/dl (32.0-37.0); MEAN CORPUSCULAR VOLUME 77.3 fl (82.0-101.0); MEAN PLATELET VOLUME 9.7 fl (7.4-10.4); MONOCYTE # 0.5 10^3/ul (0.3-0.9); MONOCYTES % 2.9 % (0.0-11.0); NEUTROPHILS % 88.4 % (39.0-77.0); NUCLEATED RED BLOOD CELLS% 0.1 /100WBC (0.0-0.0); PLATELET COUNT 697 10^3/UL (140-415); RED BLOOD COUNT 4.93 10^6/ul (4.70-6.10); RED CELL DISTRIBUTION WIDTH 21.8 % (11.5-14.5)
[2018-02-19 05:10] LABS: WHITE BLOOD COUNT 18.1 10^3/ul (4.8-10.8)
[2018-02-19] MEDS: ACETAMINOPHEN 325 MG TAB NGT (05:29)
[2018-02-19] MEDS: PIPER-TAZO 3.375 GM IV (PMX) 100 ML IVPB ×3 (05:29→17:11)
[2018-02-19 05:41] LABS: ANION GAP 10 (8-16); BLOOD UREA NITROGEN 9 mg/dl (7-20); CALCIUM 7.9 mg/dl (8.4-10.2); CARBON DIOXIDE 24 mmol/L (21-31); CHLORIDE 114 mmol/L (97-110); CREATININE 0.73 mg/dl (0.61-1.24); GLUCOSE 101 mg/dl (70-220); POTASSIUM 3.8 mmol/L (3.5-5.1); SODIUM 144 mmol/L (135-144)
[2018-02-19 07:26] LABS: AADO2 Arterial 249.3 mmHg (7.0-24.0); Allen Test ACCEPTAB; Arterial Base Excess -2.9 mmol/L (-3.0-3); Arterial Blood Gas Oxygen Sat 94.9 mmHG (95.0-98.0); Arterial COHb 0.1 % (0.0-3.0); Arterial Fraction of Oxyhgb 94.5 % (93.0-99.0); Arterial HCO3 20.4 mmol/L (22.0-26.0); Arterial MetHb 0.3 % (0.0-1.5); Arterial Total Hemglobin 12.5 g/dl (12.0-18.0); MODE VENT - AC; Site Right Radial
[2018-02-19] MEDS: PROPOFOL 100 ML IV ×2 (07:49→20:07)
[2018-02-19] MEDS: FAMOTIDINE 20 MG TAB NGT ×2 (08:40→21:19)
[2018-02-19] MEDS: LEVETIRACETAM 500 MG TAB NGT ×2 (08:40→21:19)
[2018-02-19] MEDS: BALSAM PERU/CASTOR OIL 60 GM TUBE TOP ×2 (08:41→21:21)
[2018-02-19] MEDS: morphine 2 MG INJ IV (11:19)
[2018-02-20] MEDS: PIPER-TAZO 3.375 GM IV (PMX) 100 ML IVPB ×5 (00:41→23:17)
[2018-02-20 04:53] LABS: ADD MAN DIFF? NO
[2018-02-20 04:58] LABS: BASOPHIL # 0.2 10^3/ul (0.0-0.1); BASOPHILS % 0.8 % (0.0-2.0); EOSINOPHILS # 0.5 10^3/ul (0.0-0.5); EOSINOPHILS % 2.4 % (0.0-7.0); HEMATOCRIT 37.7 % (42.0-52.0); HEMOGLOBIN 11.3 g/dl (14.0-18.0); LYMPHOCYTES # 0.9 10^3/ul (0.8-2.9); LYMPHOCYTES % 4.6 % (15.0-51.0); MEAN CORPUSCULAR VOLUME 76.6 fl (82.0-101.0); MEAN PLATELET VOLUME 10.2 fl (7.4-10.4); MONOCYTE # 0.7 10^3/ul (0.3-0.9); MONOCYTES % 3.3 % (0.0-11.0); NEUTROPHIL # 17.4 10^3/ul (1.6-7.5); NEUTROPHILS % 87.3 % (39.0-77.0); PLATELET COUNT 647 10^3/UL (140-415); RED BLOOD COUNT 4.92 10^6/ul (4.70-6.10); RED CELL DISTRIBUTION WIDTH 21.6 % (11.5-14.5)
[2018-02-20 04:58] LABS: WHITE BLOOD COUNT 19.9 10^3/ul (4.8-10.8)
[2018-02-20 05:23] LABS: ANION GAP 13 (8-16); BLOOD UREA NITROGEN 10 mg/dl (7-20); CALCIUM 8.1 mg/dl (8.4-10.2); CARBON DIOXIDE 23 mmol/L (21-31); CHLORIDE 110 mmol/L (97-110); CREATININE 0.77 mg/dl (0.61-1.24); GLUCOSE 109 mg/dl (70-220); POTASSIUM 4.1 mmol/L (3.5-5.1); SODIUM 142 mmol/L (135-144)
[2018-02-20] MEDS: PROPOFOL 100 ML IV ×2 (08:29→20:30)
[2018-02-20] MEDS: BALSAM PERU/CASTOR OIL 60 GM TUBE TOP ×2 (09:05→20:56)
[2018-02-20] MEDS: FAMOTIDINE 20 MG TAB NGT ×2 (09:05→20:56)
[2018-02-20] MEDS: LEVETIRACETAM 500 MG TAB NGT ×2 (09:05→20:56)
[2018-02-20] MEDS: CALCIUM GLUCONATE 10% 1 GM in DEXTROSE 5% 100 ML IVPB (14:38)
[2018-02-21 04:57] LABS: ADD MAN DIFF? NO
[2018-02-21 05:00] LABS: WHITE BLOOD COUNT 14.1 10^3/ul (4.8-10.8)
[2018-02-21 05:00] LABS: BASOPHIL # 0.1 10^3/ul (0.0-0.1); BASOPHILS % 0.8 % (0.0-2.0); EOSINOPHILS # 0.4 10^3/ul (0.0-0.5); EOSINOPHILS % 2.9 % (0.0-7.0); HEMATOCRIT 34.6 % (42.0-52.0); HEMOGLOBIN 10.8 g/dl (14.0-18.0); LYMPHOCYTES % 7.2 % (15.0-51.0); MEAN CORPUSCULAR HEMOGLOBIN 23.3 pg (29.0-33.0); MEAN CORPUSCULAR HGB CONC 31.2 g/dl (32.0-37.0); MEAN CORPUSCULAR VOLUME 74.6 fl (82.0-101.0); MEAN PLATELET VOLUME 10.6 fl (7.4-10.4); MONOCYTE # 0.6 10^3/ul (0.3-0.9); NEUTROPHIL # 11.7 10^3/ul (1.6-7.5); PLATELET COUNT 619 10^3/UL (140-415); RED BLOOD COUNT 4.64 10^6/ul (4.70-6.10); RED CELL DISTRIBUTION WIDTH 21.9 % (11.5-14.5)
[2018-02-21 05:53] LABS: ANION GAP 11 (8-16); BLOOD UREA NITROGEN 13 mg/dl (7-20); CALCIUM 8.1 mg/dl (8.4-10.2); CARBON DIOXIDE 23 mmol/L (21-31); CHLORIDE 109 mmol/L (97-110); CREATININE 0.82 mg/dl (0.61-1.24); GLUCOSE 107 mg/dl (70-220); POTASSIUM 3.2 mmol/L (3.5-5.1); SODIUM 140 mmol/L (135-144)
[2018-02-21] MEDS: PIPER-TAZO 3.375 GM IV (PMX) 100 ML IVPB ×3 (06:19→17:03)
[2018-02-21] MEDS: PROPOFOL 100 ML IV ×2 (08:06→19:46)
[2018-02-21] MEDS: BALSAM PERU/CASTOR OIL 60 GM TUBE TOP ×2 (09:01→21:26)
[2018-02-21] MEDS: FAMOTIDINE 20 MG TAB NGT ×2 (09:01→21:26)
[2018-02-21] MEDS: LEVETIRACETAM 500 MG TAB NGT ×2 (09:01→21:26)
[2018-02-21] MEDS: POTASSIUM CHLORIDE (SR) 20 MEQ TAB PO (13:22)
[2018-02-21] MEDS: POTASSIUM CHLORIDE 20 MEQ POWDER FOR ORAL SOLN GTB (13:26)
[2018-02-21] MEDS: CALCIUM GLUCONATE 10% 1 GM in DEXTROSE 5% 100 ML IVPB (15:00)
[2018-02-21] MEDS: ACETAMINOPHEN 325 MG TAB NGT (21:30)
[2018-02-22] MEDS: PIPER-TAZO 3.375 GM IV (PMX) 100 ML IVPB ×4 (00:23→18:05)
[2018-02-22 02:39] LABS: AADO2 Arterial 262.9 mmHg (7.0-24.0); Allen Test ACCEPTAB; Arterial Base Excess -1.3 mmol/L (-3.0-3); Arterial Blood Gas Oxygen Sat 91.2 mmHG (95.0-98.0); Arterial COHb 0.2 % (0.0-3.0); Arterial Fraction of Oxyhgb 90.8 % (93.0-99.0); Arterial HCO3 21.3 mmol/L (22.0-26.0); Arterial MetHb 0.2 % (0.0-1.5); Arterial Total Hemglobin 12.2 g/dl (12.0-18.0); Arterial pCO2 29.4 mmhg (35-45); MODE VENT - AC; Site Right Radial
[2018-02-22 02:43] LABS: ADD MAN DIFF? NO
[2018-02-22 02:45] LABS: WHITE BLOOD COUNT 12.4 10^3/ul (4.8-10.8)
[2018-02-22 02:45] LABS: BASOPHIL # 0.2 10^3/ul (0.0-0.1); BASOPHILS % 1.2 % (0.0-2.0); EOSINOPHILS # 0.5 10^3/ul (0.0-0.5); HEMATOCRIT 36.7 % (42.0-52.0); HEMOGLOBIN 11.1 g/dl (14.0-18.0); LYMPHOCYTES # 0.8 10^3/ul (0.8-2.9); LYMPHOCYTES % 6.8 % (15.0-51.0); MEAN CORPUSCULAR HGB CONC 30.2 g/dl (32.0-37.0); MEAN PLATELET VOLUME 10.7 fl (7.4-10.4); MONOCYTE # 0.5 10^3/ul (0.3-0.9); NEUTROPHIL # 10.1 10^3/ul (1.6-7.5); NEUTROPHILS % 81.7 % (39.0-77.0); PLATELET COUNT 721 10^3/UL (140-415); RED BLOOD COUNT 4.83 10^6/ul (4.70-6.10); RED CELL DISTRIBUTION WIDTH 21.5 % (11.5-14.5)
[2018-02-22 03:06] LABS: PHOSPHORUS 3.7 mg/dl (2.5-4.9)
[2018-02-22 03:06] LABS: ANION GAP 12 (8-16); BLOOD UREA NITROGEN 12 mg/dl (7-20); CALCIUM 8.4 mg/dl (8.4-10.2); CARBON DIOXIDE 24 mmol/L (21-31); CHLORIDE 110 mmol/L (97-110); CREATININE 0.81 mg/dl (0.61-1.24); GLUCOSE 103 mg/dl (70-220); MAGNESIUM 1.8 mg/dl (1.7-2.5); PHOSPHORUS 3.7 mg/dl (2.5-4.9); POTASSIUM 3.5 mmol/L (3.5-5.1); SODIUM 142 mmol/L (135-144)
[2018-02-22] MEDS: PROPOFOL 100 ML IV ×2 (08:30→19:30)
[2018-02-22] MEDS: FENTAnyl (DRIP) 1000 mcg/100mL 100 ML IV (08:38)
[2018-02-22] MEDS ORDERED: VANCOMYCIN IV PER PHARMACY XX (09:00)
[2018-02-22] MEDS: FAMOTIDINE 20 MG TAB NGT ×2 (09:16→20:14)
[2018-02-22] MEDS: BALSAM PERU/CASTOR OIL 60 GM TUBE TOP ×2 (09:16→20:14)
[2018-02-22] MEDS: LEVETIRACETAM 500 MG TAB NGT ×2 (09:16→20:14)
[2018-02-22 10:20] LABS: IRON < 10 ug/dl (35-150)
[2018-02-22 10:28] LABS: TOTAL IRON BINDING CAPACITY 274 ug/dl (241-421)
[2018-02-22] MEDS: VANCOMYCIN 1.5 GM in SOD CHLORIDE 0.9% 250 ML IVPB (11:13)
[2018-02-22] MEDS: VANCOMYCIN 1 GM 250 ML IVPB (20:14)
[2018-02-23] MEDS: PIPER-TAZO 3.375 GM IV (PMX) 100 ML IVPB ×5 (01:12→23:57)
[2018-02-23 05:25] LABS: ADD MAN DIFF? NO
[2018-02-23 05:26] LABS: WHITE BLOOD COUNT 13.6 10^3/ul (4.8-10.8)
[2018-02-23 05:26] LABS: ABNORMAL IP MESSAGE 1; BASOPHIL # 0.1 10^3/ul (0.0-0.1); EOSINOPHILS # 0.6 10^3/ul (0.0-0.5); EOSINOPHILS % 4.3 % (0.0-7.0); HEMATOCRIT 34.9 % (42.0-52.0); HEMOGLOBIN 10.7 g/dl (14.0-18.0); LYMPHOCYTES # 0.8 10^3/ul (0.8-2.9); MEAN CORPUSCULAR HEMOGLOBIN 23.4 pg (29.0-33.0); MEAN CORPUSCULAR HGB CONC 30.7 g/dl (32.0-37.0); MEAN CORPUSCULAR VOLUME 76.2 fl (82.0-101.0); MONOCYTE # 0.5 10^3/ul (0.3-0.9); MONOCYTES % 3.4 % (0.0-11.0); NEUTROPHIL # 11.4 10^3/ul (1.6-7.5); NEUTROPHILS % 83.8 % (39.0-77.0); NUCLEATED RED BLOOD CELLS% 0.1 /100WBC (0.0-0.0); PLATELET COUNT 737 10^3/UL (140-415); POSITIVE DIFF @See below; RED BLOOD COUNT 4.58 10^6/ul (4.70-6.10); RED CELL DISTRIBUTION WIDTH 22.2 % (11.5-14.5)
[2018-02-23 06:00] LABS: PHOSPHORUS 3.7 mg/dl (2.5-4.9)
[2018-02-23 06:00] LABS: MAGNESIUM 1.9 mg/dl (1.7-2.5)
[2018-02-23 06:15] LABS: ANION GAP 9 (8-16); BLOOD UREA NITROGEN 13 mg/dl (7-20); CALCIUM 8.2 mg/dl (8.4-10.2); CARBON DIOXIDE 26 mmol/L (21-31); CHLORIDE 112 mmol/L (97-110); CREATININE 0.86 mg/dl (0.61-1.24); GLUCOSE 94 mg/dl (70-220); POTASSIUM 3.3 mmol/L (3.5-5.1); SODIUM 144 mmol/L (135-144)
[2018-02-23] MEDS: PROPOFOL 100 ML IV (08:27)
[2018-02-23] MEDS: FAMOTIDINE 20 MG TAB NGT ×2 (08:58→20:00)
[2018-02-23] MEDS: LEVETIRACETAM 500 MG TAB NGT ×2 (08:58→20:00)
[2018-02-23] MEDS: VANCOMYCIN 1 GM 250 ML IVPB ×2 (08:59→21:31)
[2018-02-23] MEDS: BALSAM PERU/CASTOR OIL 60 GM TUBE TOP ×2 (08:59→20:00)
[2018-02-23] MEDS: POTASSIUM CHLORIDE 20 MEQ POWDER FOR ORAL SOLN GTB (09:44)
[2018-02-23] MEDS: HYDROmorphONE 0.5 MG/0.5 ML SYG IV (19:53)
[2018-02-23 21:08] LABS: VANCOMYCIN,TROUGH 12.5 ug/ml (10.0-20.0)
[2018-02-24] MEDS: PIPER-TAZO 3.375 GM IV (PMX) 100 ML IVPB ×3 (05:06→18:37)
[2018-02-24 05:21] LABS: ADD MAN DIFF? NO
[2018-02-24 05:26] LABS: WHITE BLOOD COUNT 16.6 10^3/ul (4.8-10.8)
[2018-02-24 05:26] LABS: BASOPHIL # 0.2 10^3/ul (0.0-0.1); BASOPHILS % 1.1 % (0.0-2.0); EOSINOPHILS # 0.6 10^3/ul (0.0-0.5); EOSINOPHILS % 3.4 % (0.0-7.0); HEMATOCRIT 35.6 % (42.0-52.0); HEMOGLOBIN 10.7 g/dl (14.0-18.0); LYMPHOCYTES # 0.8 10^3/ul (0.8-2.9); LYMPHOCYTES % 4.8 % (15.0-51.0); MEAN CORPUSCULAR HEMOGLOBIN 23.3 pg (29.0-33.0); MEAN CORPUSCULAR HGB CONC 30.1 g/dl (32.0-37.0); MEAN CORPUSCULAR VOLUME 77.4 fl (82.0-101.0); MEAN PLATELET VOLUME 10.9 fl (7.4-10.4); MONOCYTE # 0.4 10^3/ul (0.3-0.9); MONOCYTES % 2.5 % (0.0-11.0); NEUTROPHIL # 14.2 10^3/ul (1.6-7.5); NEUTROPHILS % 86.2 % (39.0-77.0); NUCLEATED RED BLOOD CELLS% 0.1 /100WBC (0.0-0.0); PLATELET COUNT 912 10^3/UL (140-415); RED CELL DISTRIBUTION WIDTH 21.7 % (11.5-14.5)
[2018-02-24 06:08] LABS: ANION GAP 9 (8-16); BLOOD UREA NITROGEN 13 mg/dl (7-20); CALCIUM 8.2 mg/dl (8.4-10.2); CARBON DIOXIDE 25 mmol/L (21-31); CHLORIDE 113 mmol/L (97-110); CREATININE 0.85 mg/dl (0.61-1.24); GLUCOSE 100 mg/dl (70-220); PHOSPHORUS 3.3 mg/dl (2.5-4.9); POTASSIUM 3.3 mmol/L (3.5-5.1); SODIUM 144 mmol/L (135-144)
[2018-02-24] MEDS: LEVETIRACETAM 500 MG TAB NGT ×2 (08:29→20:23)
[2018-02-24] MEDS: FAMOTIDINE 20 MG TAB NGT ×2 (08:29→20:21)
[2018-02-24] MEDS: VANCOMYCIN 1 GM 250 ML IVPB ×2 (08:30→20:34)
[2018-02-24] MEDS: BALSAM PERU/CASTOR OIL 60 GM TUBE TOP ×2 (08:30→21:14)
[2018-02-24] MEDS: HYDROmorphONE 0.5 MG/0.5 ML SYG IV (16:38)
[2018-02-25] MEDS: PIPER-TAZO 3.375 GM IV (PMX) 100 ML IVPB ×4 (00:08→18:04)
[2018-02-25 06:23] LABS: ADD MAN DIFF? NO
[2018-02-25 06:25] LABS: ABNORMAL IP MESSAGE 1; BASOPHIL # 0.2 10^3/ul (0.0-0.1); BASOPHILS % 0.9 % (0.0-2.0); EOSINOPHILS # 0.6 10^3/ul (0.0-0.5); EOSINOPHILS % 3.5 % (0.0-7.0); HEMATOCRIT 36.1 % (42.0-52.0); HEMOGLOBIN 10.8 g/dl (14.0-18.0); LYMPHOCYTES % 5.6 % (15.0-51.0); MEAN CORPUSCULAR HEMOGLOBIN 22.7 pg (29.0-33.0); MEAN CORPUSCULAR HGB CONC 29.9 g/dl (32.0-37.0); MEAN PLATELET VOLUME 10.7 fl (7.4-10.4); MONOCYTE # 0.5 10^3/ul (0.3-0.9); MONOCYTES % 2.6 % (0.0-11.0); NEUTROPHIL # 14.8 10^3/ul (1.6-7.5); NEUTROPHILS % 84.8 % (39.0-77.0); PLATELET COUNT 1094 10^3/UL (140-415); POSITIVE DIFF @See below; RED BLOOD COUNT 4.75 10^6/ul (4.70-6.10); RED CELL DISTRIBUTION WIDTH 22.5 % (11.5-14.5)
[2018-02-25 06:25] LABS: WHITE BLOOD COUNT 17.5 10^3/ul (4.8-10.8)
[2018-02-25 06:52] LABS: PHOSPHORUS 3.9 mg/dl (2.5-4.9)
[2018-02-25 06:52] LABS: ANION GAP 10 (8-16); BLOOD UREA NITROGEN 11 mg/dl (7-20); CALCIUM 8.3 mg/dl (8.4-10.2); CARBON DIOXIDE 24 mmol/L (21-31); CHLORIDE 114 mmol/L (97-110); CREATININE 0.89 mg/dl (0.61-1.24); GLUCOSE 95 mg/dl (70-220); POTASSIUM 3.1 mmol/L (3.5-5.1); SODIUM 145 mmol/L (135-144)
[2018-02-25] MEDS: BALSAM PERU/CASTOR OIL 60 GM TUBE TOP ×2 (09:01→21:18)
[2018-02-25] MEDS: FAMOTIDINE 20 MG TAB NGT ×2 (09:01→21:17)
[2018-02-25] MEDS: VANCOMYCIN 1 GM 250 ML IVPB ×2 (09:01→21:18)
[2018-02-25] MEDS: LEVETIRACETAM 500 MG TAB NGT ×2 (09:01→21:17)
[2018-02-25] MEDS: POTASSIUM CHLORIDE 100 ML IVPB ×3 (11:35→16:51)
[2018-02-25] MEDS: HYDROmorphONE 0.5 MG/0.5 ML SYG IV (11:50)
[2018-02-26] MEDS: PIPER-TAZO 3.375 GM IV (PMX) 100 ML IVPB ×4 (00:24→18:08)
[2018-02-26 05:28] LABS: ADD MAN DIFF? NO
[2018-02-26 05:42] LABS: ABNORMAL IP MESSAGE 1; BASOPHIL # 0.2 10^3/ul (0.0-0.1); BASOPHILS % 1.2 % (0.0-2.0); EOSINOPHILS # 0.7 10^3/ul (0.0-0.5); EOSINOPHILS % 3.6 % (0.0-7.0); HEMATOCRIT 37.5 % (42.0-52.0); HEMOGLOBIN 11.2 g/dl (14.0-18.0); LYMPHOCYTES # 1.1 10^3/ul (0.8-2.9); LYMPHOCYTES % 5.8 % (15.0-51.0); MEAN CORPUSCULAR HEMOGLOBIN 22.8 pg (29.0-33.0); MEAN CORPUSCULAR HGB CONC 29.9 g/dl (32.0-37.0); MEAN CORPUSCULAR VOLUME 76.4 fl (82.0-101.0); MEAN PLATELET VOLUME 10.4 fl (7.4-10.4); MONOCYTE # 0.6 10^3/ul (0.3-0.9); NEUTROPHIL # 15.4 10^3/ul (1.6-7.5); NEUTROPHILS % 82.3 % (39.0-77.0); NUCLEATED RED BLOOD CELLS% 0.1 /100WBC (0.0-0.0); PLATELET COUNT 1180 10^3/UL (140-415); POSITIVE DIFF @See below; RED BLOOD COUNT 4.91 10^6/ul (4.70-6.10); RED CELL DISTRIBUTION WIDTH 22.6 % (11.5-14.5)
[2018-02-26 05:42] LABS: WHITE BLOOD COUNT 18.7 10^3/ul (4.8-10.8)
[2018-02-26 06:08] LABS: PATH REVIEW? YES
[2018-02-26 06:20] LABS: ANION GAP 12 (8-16); BLOOD UREA NITROGEN 11 mg/dl (7-20); CALCIUM 8.5 mg/dl (8.4-10.2); CARBON DIOXIDE 23 mmol/L (21-31); CHLORIDE 112 mmol/L (97-110); CREATININE 0.91 mg/dl (0.61-1.24); GLUCOSE 99 mg/dl (70-220); POTASSIUM 3.6 mmol/L (3.5-5.1); SODIUM 143 mmol/L (135-144)
[2018-02-26] MEDS: HYDROmorphONE 0.5 MG/0.5 ML SYG IV (06:25)
[2018-02-26] MEDS: LEVETIRACETAM 500 MG TAB NGT ×2 (08:37→21:38)
[2018-02-26] MEDS: FAMOTIDINE 20 MG TAB NGT ×2 (08:37→21:38)
[2018-02-26] MEDS: VANCOMYCIN 1 GM 250 ML IVPB ×2 (08:37→21:38)
[2018-02-26] MEDS: BALSAM PERU/CASTOR OIL 60 GM TUBE TOP ×2 (08:38→21:38)
[2018-02-26 09:49] LABS: ANISOCYTOSIS 3+ (0-0); BAND NEUTROPHILS #M 1.6 10^3/ul (0.0-0.6); BAND NEUTROPHILS % (M) 9 % (0-4); EOSINOPHILS % (M) 4 % (0-7); HYPOCHROMASIA 1+ (0-0); LYMPHOCYTES #M 0.5 10^3/ul (0.8-2.9); LYMPHOCYTES % (M) 3 % (15-51); MICROCYTOSIS 3+ (0-0); MONOCYTE #M 0.7 10^3/ul (0.3-0.9); MONOCYTES % (M) 4 % (0-11); PLASMA CELLS #M 0.1 10^3/ul (0.0-0.0); PLASMAC%(M) 1 % (0); PLATELET ESTIMATE INCREASED; POIKILOCYTOSIS 1+ (0-0); POLYCHROMASIA 3+ (0-0); SEG NEUT #M 15.1 10^3/ul (1.6-7.5); SEGMENTED NEUTROPHILS (M) % 79 % (39-77); SMUDGE%M 3 % (0-0)
[2018-02-26] MEDS ORDERED: HYDROmorphONE 2 MG TAB PO (18:00)
[2018-02-27] MEDS: PIPER-TAZO 3.375 GM IV (PMX) 100 ML IVPB ×2 (00:44→05:49)
[2018-02-27] MEDS: BALSAM PERU/CASTOR OIL 60 GM TUBE TOP (09:00)
[2018-02-27] MEDS: FAMOTIDINE 20 MG TAB NGT (10:45)
[2018-02-27] MEDS: LEVETIRACETAM 500 MG TAB NGT (10:45)
[2018-02-27] MEDS ORDERED: BISACODYL 10 MG SUPP PR (16:00)
[2018-02-27] MEDS ORDERED: ONDANSETRON 4 MG INJ IV (16:00)
[2018-02-27] MEDS: morphine (DRIP) 100 MG/100 ML 100 ML IV ×3 (16:13→23:39)
[2018-02-27] MEDS: LORAZEPAM 2 MG INJ IV (16:28)
[2018-02-27] MEDS ORDERED: ATROPINE 1% 5 ML OPH SL (17:00)
[2018-02-28] MEDS: ACETAMINOPHEN 650 MG SUPP PR (00:10)
[2018-02-28] MEDS: LORAZEPAM 2 MG INJ IV ×2 (05:55→08:13)
== END 2018-02-28 09:45 | disposition expired | DRG 25 ==
LOC: E/R 11:30 → ICU 02-17 11:18 → 2NE 02-27 21:40
PROC: 009400Z Drainage of Intracranial Subdural Space with Drainage Device, Open Approach (ICD-10-PCS; principal; 2018-02-15 16:00)
PROC: 5A1955Z Respiratory Ventilation, Greater than 96 Consecutive Hours (ICD-10-PCS; 2018-02-15 16:38)
PROC: 05H533Z Insertion of Infusion Device into Right Subclavian Vein, Percutaneous Approach (ICD-10-PCS; 2018-02-15 16:38)
PROC: 0BH17EZ Insertion of Endotracheal Airway into Trachea, Via Natural or Artificial Opening (ICD-10-PCS; 2018-02-15 16:38)
DX: S06.5X9A Traumatic subdural hemorrhage with loss of consciousness of unspecified duration, initial encounter (principal); A41.9 Sepsis, unspecified organism; J96.90 Respiratory failure, unspecified, unspecified whether with hypoxia or hypercapnia; G93.5 Compression of brain; G93.49 Other encephalopathy; J18.9 Pneumonia, unspecified organism; E87.2 Acidosis; E87.0 Hyperosmolality and hypernatremia; I42.9 Cardiomyopathy, unspecified; G91.0 Communicating hydrocephalus; L89.150 Pressure ulcer of sacral region, unstageable; D64.9 Anemia, unspecified; D47.3 Essential (hemorrhagic) thrombocythemia; F10.20 Alcohol dependence, uncomplicated; M10.9 Gout, unspecified; R40.2433 Glasgow coma scale score 3-8, at hospital admission; R29.6 Repeated falls; W18.30XA Fall on same level, unspecified, initial encounter; Z87.891 Personal history of nicotine dependence; Z79.82 Long term (current) use of aspirin; Z66 Do not resuscitate
CPT/HCPCS: 31500; 36600; 70450; 71045; 74018; 80048; 80053; 80202; 80307; 81001; 82803; 83540; 83605; 83690; 83735; 84100; 84132; 84484; 85025; 85610; 85730; 86850; 86900; 86901; 87040; 87070; 87081; 87086; 88305; 93005; 94002; 94003; 94770; 95819; 96374; 96375; 99291-25